=== PATIENT | female | born 1975 | race Two or more races ===

== ENCOUNTER 2021-01-20 13:22 | Emergency (ER) | payer SELFPAY ==
[~2021-01-20] VITALS: Ht 165.1 cm; Wt 80.0 kg
[2021-01-20] MEDS: KETOROLAC 60MG/2ML VIAL IM ONE (14:11)
[2021-01-20] MEDS ORDERED: IBUP-2030 MT (16:13)
[2021-01-20] MEDS ORDERED: TRAM50TA3 MT (16:13)
[2021-01-20 16:58] VITALS: BP 121/79
== END 2021-01-20 17:04 | disposition home or self-care (01) ==
LOC: ER 13:22
DX: S52.592A Other fractures of lower end of left radius, initial encounter for closed fracture (principal); S43.102A Unspecified dislocation of left acromioclavicular joint, initial encounter; M79.641 Pain in right hand; W01.0XXA Fall on same level from slipping, tripping and stumbling without subsequent striking against object, initial encounter; Y93.89 Activity, other specified; Y92.89 Other specified places as the place of occurrence of the external cause; Y99.8 Other external cause status
CPT/HCPCS: 29125; 73030; 73130; 96372; 99284; J1885; A4565